=== PATIENT | male | born 1950 | race Caucasian/White ===

== ENCOUNTER 2022-07-05 13:40 | Outpatient (CLI) | payer MEDICARE, OTHER | END 2022-07-05 23:59 | disposition home or self-care (01) | LOC: CARD DIAG 13:40 | PROVIDERS: ATTEND Internal Medicine Cardiovascular Disease | DX: I08.0 Rheumatic disorders of both mitral and aortic valves (principal); R07.9 Chest pain, unspecified; R42 Dizziness and giddiness | CPT/HCPCS: 93306 ==

== ENCOUNTER 2023-01-17 05:56 | Day surgery (SDC) | payer MEDICARE, OTHER ==
[2023-01-16 10:58] LABS: BASOPHILS # (AUTO) 0.1 X10'3 (0-0.2); BASOPHILS % (AUTO) 0.8 % (0-1); EOSINOPHILS # (AUTO) 0.2 X10'3 (0-0.9); EOSINOPHILS % (AUTO) 2.4 % (0-6); HEMATOCRIT 44.1 % (42.0-52.0); HEMOGLOBIN 15.3 g/dl (14.0-17.9); LYMPHOCYTES # (AUTO) 1.5 X10'3 (1.1-4.8); LYMPHOCYTES % (AUTO) 19.6 % (21-51); MEAN CORPUSCULAR HEMOGLOBIN 32.6 PG (27.0-31.0); MEAN CORPUSCULAR HGB CONC 34.7 g/dL (33.0-36.5); MEAN CORPUSCULAR VOLUME 93.9 FL (78-98); MEAN PLATELET VOLUME 7.8 FL (7.4-10.4); MONOCYTES # (AUTO) 0.7 X10'3 (0-0.9); MONOCYTES % (AUTO) 9.6 % (2-12); NEUTROPHILS # (AUTO) 5.1 X10'3 (1.8-7.7); NEUTROPHILS % (AUTO) 67.6 % (42-75); PLATELET COUNT 202 X10'3 (140-440); RED CELL DISTRIBUTION WIDTH 12.3 % (11.5-14.5); WHITE BLOOD COUNT 7.6 X10'3 (4.5-11.0)
[2023-01-16 11:07] LABS: ALBUMIN 3.9 G/DL (3.4-5.0); ANION GAP 12 (8-16); BLOOD UREA NITROGEN 16 MG/DL (7-18); BUN/CREATININE RATIO 15.7 (10.0-20.0); CALCIUM 9.3 MG/DL (8.5-10.1); CHLORIDE 103 MMOL/L (99-107); CREATININE 1.02 MG/DL (0.60-1.10); GLUCOSE 117 MG/DL (70-104); POTASSIUM 3.6 MMOL/L (3.5-5.1); SODIUM 142 MMOL/L (135-145); TOTAL CARBON DIOXIDE 27.5 MMOL/L (24-32); eGFR 72 ML/MIN
[2023-01-16 11:09] LABS: APTT 27 SECONDS (22-32); PROTHROMBIN TIME 10.9 SECONDS (9.0-12.0)
[~2023-01-17] VITALS: Ht 172.7 cm; Wt 85.4 kg
[2023-01-17] VITALS (10 sets, daily range): BP systolic 109–189; BP diastolic 57–105; PULSE 54–84; RESP 14–17; TEMP 98.5; O2SAT 93–96
[2023-01-17] MEDS ORDERED: LORazepam 0.5 MG tablet PO PRN (06:25)
[2023-01-17] MEDS ORDERED: diphenhydrAMINE 25mg capsule PO PRN (06:25)
[2023-01-17] MEDS ORDERED: normal saline 1,000 ML IV SCH (06:25)
[2023-01-17] MEDS ORDERED: METO100T14 PO (06:40)
[2023-01-17] MEDS ORDERED: ATOR20TA66 PO (06:40)
[2023-01-17] MEDS ORDERED: LISI1TAB53 PO (06:40)
[2023-01-17] MEDS ORDERED: LISI20TA28 PO (06:40)
[2023-01-17] MEDS ORDERED: ASPI-611 PO (06:40)
[2023-01-17] MEDS ORDERED: verapamil 2.5 mg/ml inj IV ONE (07:31)
[2023-01-17] MEDS ORDERED: LIDOcaine 1% (10mg/ml) 2ml vial ONE (07:31)
[2023-01-17] MEDS ORDERED: fentaNYL/PF 50MCG/1 ML 2ML syringe ONE (07:31)
[2023-01-17] MEDS ORDERED: midazolam 1 mg/ML 2ml injection ONE ×2 (07:31→09:28)
[2023-01-17] MEDS ORDERED: heparin 1,000unit/ml 10ml vial 10 ML ONE (07:32)
[2023-01-17] MEDS ORDERED: iohexol 350MG/ML 100ml bottle IV ONE ×3 (07:32→09:02)
[2023-01-17] MEDS ORDERED: iohexol 350 MG/ML 50ML vial IV ONE (07:32)
[2023-01-17] MEDS ORDERED: nitroGLYCERIN 500mcg/5mL D5W 5 ML IV ONE ×2 (07:42→09:08)
[2023-01-17] MEDS ORDERED: heparin 25,000 UNIT/250ml bag 250 ML IV ONE (08:23)
[2023-01-17] MEDS ORDERED: heparin 1,000 UNITS/NS 500ml 500 ML ONE (08:46)
[2023-01-17] MEDS ORDERED: clopidogrel 300mg tablet ONE (09:46)
[2023-01-17] MEDS ORDERED: normal saline 1000ml 1,000 ML IV SCH (11:10)
[2023-01-17] MEDS ORDERED: aspirin 81mg tab.chew PO ONE (11:15)
[2023-01-18] MEDS ORDERED: clopidogrel 75mg tablet PO SCH (08:00)
[2023-01-18] MEDS ORDERED: CLOP-32 PO (10:41)
== END 2023-01-17 15:50 | disposition home or self-care (01) ==
LOC: SSTAY O 05:56
PROVIDERS: ATTEND Internal Medicine Cardiovascular Disease
DX: R94.39 Abnormal result of other cardiovascular function study (principal); I25.10 Atherosclerotic heart disease of native coronary artery without angina pectoris; I10 Essential (primary) hypertension; E78.5 Hyperlipidemia, unspecified; Z79.82 Long term (current) use of aspirin; Z79.899 Other long term (current) drug therapy; Z79.01 Long term (current) use of anticoagulants; Z82.49 Family history of ischemic heart disease and other diseases of the circulatory system
CPT/HCPCS: 36415; 76937; 80048; 85025; 85347; 85610; 85730; 93005; 93458; 99152; 99153; C1874; C9600; J1644; J2250; J3010; J3490; J7030; Q0163; Q9967; 96360; A6258; C1725; C1751; C1769; C1892; C1894